=== PATIENT | female | born 1980 | race Caucasian/White ===

== ENCOUNTER 2023-04-18 11:18 | Emergency (ER) | payer OTHER ==
[~2023-04-18] VITALS: Ht 162.6 cm; Wt 89.8 kg
[2023-04-18 11:18] VITALS: BP_SYST 156; PULSE 123; RESP 18; TEMP 97.6; O2SAT 98
[2023-04-18] MEDS ORDERED: LORazepam 2 MG/ML VIAL IM ONE (13:30)
[2023-04-18] MEDS ORDERED: ONDANSETRON HCL 4 MG/2 ML VIAL IM ONE (13:30)
[2023-04-18 13:44] LABS: BASOPHILS % (AUTO) 0.3 % (0.0-2.0); EOSINOPHILS # (AUTO) 0.1 K/uL (0.0-0.4); EOSINOPHILS % (AUTO) 1.1 % (0.0-4.0); HEMATOCRIT 46.9 % (36-48); HEMOGLOBIN 15.8 g/dL (12.0-16.0); LYMPHOCYTES # (AUTO) 2.7 K/uL (1.0-5.5); LYMPHOCYTES % (AUTO) 24.5 % (20.5-51.5); MEAN CORPUSCULAR HEMOGLOBIN 33 pg (27-31); MEAN CORPUSCULAR HGB CONC 34 % (32-36); MEAN CORPUSCULAR VOLUME 98 fL (79.0-98.0); MONOCYTES # (AUTO) 0.9 K/uL (0.0-1.0); MONOCYTES % (AUTO) 8.3 % (1.7-9.3); NEUTROPHILS # (AUTO) 7.4 K/uL (1.8-7.7); NEUTROPHILS % (AUTO) 65.8 % (40.0-70.0); PLATELET COUNT (AUTO) 190 K/uL (130-430); RED BLOOD CELL COUNT(AUTO) 4.78 MIL/uL (4.2-6.2); RED CELL DISTRIBUTION WIDTH 15.7 % (9.0-15.0); WHITE BLOOD COUNT (AUTO) 11.2 K/uL (4.8-10.8)
[2023-04-18 14:24] LABS: ALANINE AMINOTRANSFERASE 73 U/L (12-78); ALBUMIN 4.4 g/dL (3.4-4.8); ANION GAP 13 (5-15); ASPARTATE AMINOTRANSFERASE 101 U/L (10-37); CALCIUM 9.4 mg/dL (8.4-11.0); CHLORIDE 96 mmol/L (98-107); CREATININE 1.23 mg/dL (0.55-1.30); GFR AFRICAN AMERICAN 61 mL/min (>90); GLUCOSE 141 mg/dL (74-106); UREA NITROGEN, BLOOD 15 mg/dL (8-21)
[2023-04-18 14:27] LABS: LIPASE 316 U/L (73-393)
[2023-04-18] MEDS ORDERED: POTASSIUM CHLORIDE 20 MEQ/PKT PACKET PO ONE (14:45)
[2023-04-18 16:31] LABS: BILIRUBIN,URINE 3+ (NEGATIVE); BLOOD, URINE NEGATIVE (NEGATIVE); COLOR,URINE ORANGE (YELLOW); LEUKOCYTE ESTERASE ,URINE TRACE (NEGATIVE); NITRITE, URINE POSITIVE (NEGATIVE); PH,URINE 6.5 (5.0-8.0); PROTEIN URINE 2+ (NEGATIVE)
[2023-04-18 17:07] LABS: CLARITY/URINE HAZY (CLEAR)
[2023-04-18 17:08] LABS: GLUCOSE,URINE NEGATIVE (NEGATIVE); KETONES,URINE 1+ (NEGATIVE)
[2023-04-18 17:09] LABS: RBC,URINE NONE SEEN /HPF (0-3)
[2023-04-18 17:10] LABS: BACTERIA,URINE FEW /HPF (None Seen); MUCUS,URINE 2+ /LPF (None Seen)
[2023-04-18] MEDS ORDERED: SULF1TAB48 PO (17:26)
[2023-04-18] MEDS ORDERED: LORA-259 PO (17:26)
[2023-04-18] MEDS ORDERED: ONDA-8 TL (17:26)
[2023-04-18] MEDS ORDERED: SULFAMETHOXAZOLE/TRIMETHOPR DS 1 TABLET PO ONE (17:30)
[2023-04-18 18:07] VITALS: BP_SYST 156; PULSE 123; RESP 18; TEMP 97.6; O2SAT 98
== END 2023-04-18 18:07 | disposition home or self-care (01) ==
LOC: SED 11:18
DX: N39.0 Urinary tract infection, site not specified (principal); F41.1 Generalized anxiety disorder; R06.02 Shortness of breath; R00.2 Palpitations; R11.2 Nausea with vomiting, unspecified; Z79.899 Other long term (current) drug therapy
CPT/HCPCS: 99285; 71045; 80053; 81000; 83690; 85025; 85379; 87086; 84484; 36415; 93005; 81025; 96372; J2060; J2405